=== PATIENT | male | born 1950 | race Caucasian/White ===

== ENCOUNTER → 2023-11-16 07:10 | Outpatient (REF) | payer OTHER, SELFPAY | LOC: MRI 3T 07:10 | PROVIDERS: ATTENDING PHYSICIAN Surgery; FAMILY PHYSICIAN Family Medicine | DX: R97.20 Elevated prostate specific antigen [PSA] (principal) | CPT/HCPCS: 72197; A9575 ==

== ENCOUNTER → 2023-12-05 13:15 | Outpatient (REF) | payer OTHER, SELFPAY | LOC: HWRAD 13:15 | PROVIDERS: ATTENDING PHYSICIAN Specialist; FAMILY PHYSICIAN Family Medicine | DX: E11.65 Type 2 diabetes mellitus with hyperglycemia (principal); I10 Essential (primary) hypertension; N18.31 Chronic kidney disease, stage 3a; E87.5 Hyperkalemia; R80.9 Proteinuria, unspecified; R79.9 Abnormal finding of blood chemistry, unspecified | CPT/HCPCS: 76770 ==

== ENCOUNTER → 2024-01-11 12:22 | Outpatient (REF) | payer OTHER, SELFPAY | LOC: PET 12:22 | PROVIDERS: ATTENDING PHYSICIAN Internal Medicine Hematology & Oncology | DX: C61 Malignant neoplasm of prostate (principal) | CPT/HCPCS: 78815 ==